=== PATIENT | female | born 1975 | race Caucasian/White ===

== ENCOUNTER 2019-03-08 12:59 | Inpatient (IN) ==
[2019-03-08 14:17] LABS: BASO# 0.04 X1000 (0.0-0.2); BASO% 0.9 % (0.0-0.8); EOS# 0.06 X1000 (0.0-0.7); EOS% 1.4 % (0.0-10.0); HEMATOCRIT 41.5 % (37.0-47.0); HEMOGLOBIN 14.1 g/dL (12.0-16.0); LYMPH# 1.63 X1000 (1.2-3.4); LYMPH% 37.6 % (20.5-51.1); MCH 31.6 PG (27-31); MONO# 0.37 X1000 (0.11-0.59); MONO% 8.5 % (1.7-9.3); NEUT# 2.24 X1000 (1.4-6.5); NEUT% 51.6 % (42.2-75.2); PLT 260 X1000 (130-400); RBC 4.46 XMIL (4.2-5.4); RDW 12.9 % (11.5-14.5); WBC 4.34 X1000 (4.8-10.8)
[2019-03-08 14:30] LABS: URINE SOURCE CATH
[2019-03-08 14:49] LABS: BILIRUBIN URINE NEGATIVE (NEGATIVE); BLOOD URINE NEGATIVE (NEGATIVE); COLOR YELLOW; GLUCOSE URINE NEGATIVE (NEGATIVE); KETONE URINE NEGATIVE (NEGATIVE); LEUKOCYTES URINE NEGATIVE (NEGATIVE); NITRITE URINE NEGATIVE (NEGATIVE); PROTEIN URINE NEGATIVE (NEGATIVE); SP GRAVITY URINE 1.012; TURBIDITY URINE CLEAR (CLEAR); UROBILINOGEN URINE NORMAL (NORMAL)
[2019-03-08 14:51] LABS: UR EPITHELIAL CELLS <10 /HPF (<10); URINE BACTERIA NEGATIVE /HPF; URINE RBC <10 /HPF (<10); URINE WBC <10 /HPF (<10)
[2019-03-08 14:54] LABS: AGAP 12; ALB/GLOB RATIO 1.4; ALBUMIN 4.3 g/dL (3.5-5.0); ALKALINE PHOSPHATASE 54 U/L (32-104); BUN 8 mg/dL (8-22); CHLORIDE 114 mmol/L (98-107); COSMO 288; CREATININE 0.8 mg/dL (0.5-0.9); ESTIMATED GFR > 60; GLUCOSE 87 mg/dL (70-104); GOT 19 U/L (10-30); GPT 24 U/L (10-36); POTASSIUM 3.7 mmol/L (3.5-5.1); SODIUM 146 mmol/L (136-145); TCO2 20 mmol/L (25-35); TOTAL BILIRUBIN 0.27 mg/dL (0.20-1.00); TOTAL PROTEIN 7.3 g/dL (6.3-8.3)
[2019-03-08 14:56] LABS: UR AMPHETAMINES QUAL NONE DETECTED (NONE DETECT); UR BARBITUATES QUAL NONE DETECTED (NONE DETECT); UR BENZODIAZEPIN QUAL NONE DETECTED (NONE DETECT); UR CANNABINOIDS QUAL NONE DETECTED (NONE DETECT); UR COCAINE QUAL NONE DETECTED (NONE DETECT); UR METHADONE QUAL NONE DETECTED (NONE DETECT); UR OPIATES QUAL NONE DETECTED (NONE DETECT); UR OXYCODONE QUAL NONE DETECTED (NONE DETECT); UR PCP QUAL NONE DETECTED (NONE DETECT)
[2019-03-08 15:12] LABS: FREE T4 1.22 ng/dL (0.93-1.70); TSH 1.16 uIUmL (0.27-4.20)
--- NOTE | 2019-03-08 15:22 | PROVIDER DOCUMENTATION ---
This chart was entered by Tim Goodwin Scribe, acting as scribe for Jorge Aquino MD. HPI-Psychological Disorder - General Chief Complaint: Suicide Attempt Stated Complaint: OVERDOSE Time Seen by Provider: 03/08/19 13:19 Source: patient, family Allergies/Adverse Reactions: Patient Allergies Allergy/AdvReac Type Severity Reaction Status Date / Time bupropion [From Wellbutrin] Allergy HIVES Verified 03/08/19 14:18 Home Medications: Home Medication List Medication Instructions Recorded Confirmed Last Taken Type Fluoxetine HCl [Prozac] 40 mg PO DAILY 03/08/19 03/08/19 Unknown History Iron,Carbonyl/Vit C/Vit B12/FA 1 ea PO DAILY 03/08/19 03/08/19 Unknown History [Iron 100 Plus Tablet] Topiramate [Topamax] 25 mg PO BID 03/08/19 03/08/19 Unknown History Vitamin B Complex [B Complex] 1 ea PO DAILY 03/08/19 03/08/19 Unknown History - History of Present Illness-Psych Nature of Presenting Problem: Pt is a 43 yof who presents to the ED via EMS with a CC of overdose attempt. EMS reports the pt tried to overdose by drinking a full bottle of benadryl and an entire bottle of clonidine. Pt's reports the pt has been depressed over a custody titus and has been taking anti-depressants. Pt's reports the pt left a note for him at home. Pt's reports the pt has been going to work with him for three weeks and today is the first day he left her home alone. Pt's states the pt has an upcoming court date over the custody titus. Onset/Duration: reports: just prior to arrival Timing: reports: still present Severity: reports: moderate Situational problems related to:: reports: legal problems (Custody titus) Psychiatric Complaints: reports: other (Limited due to pt's condition) Substance Use: reports: other (Limited due to pt's condition) Patient arrived by:: EMS called by spouse/family Similar Symptoms Previously?: No Recently seen or treated by another doctor?: No - Suicidal Ideation Suicide Risk Assessment: depressed, organized plan Suicidal Attempt Method: reports: Overdose Review of Systems - Adult - REVIEW OF SYSTEMS - ADULT ROS:: limited per condition Constitutional: reports: see HPI Eyes: reports: no symptoms reported Ears, Nose, Mouth & Throat: reports: no symptoms reported Cardiovascular: reports: no symptoms reported Respiratory: reports: no symptoms reported Gastrointestinal: reports: no symptoms reported Genitourinary: reports: no symptoms reported Musculoskeletal: reports: no symptoms reported Integumentary: reports: no symptoms reported Neurological: reports: no symptoms reported Psychiatric: reports: see HPI, anti-depressant use, depression, suicidal thoughts, other (Limited due to pt's condition) Endocrine: reports: no symptoms reported Hematologic/Lymphatic: reports: no symptoms reported Allergic/Immunologic: reports: no symptoms reported All Other Systems: Reviewed and Negative Past History - Adult - PAST MEDICAL HISTORY-ADULT Review of Records: reports: Old Records Reviewed, Nursing Assessment Review, Medications Reviewed, Social history reviewed & non-contributory. Major Childhood Illnesses: reports: denies history Cardiovascular: reports: denies history Respiratory: reports: denies history Gastrointestinal: reports: denies history Obstetrical/Gynecological: reports: denies history Genitourinary: reports: denies history Musculoskeletal: reports: denies history Neurological: reports: denies history Endocrine/Immune: reports: denies history Other Conditions: reports: denies history - IMMUNIZATION STATUS Childhood Immunizations: See Nurse Assessment Flu Vaccine: See Nurse Assessment - FAMILY HISTORY Family History: reviewed, not pertinent Physical Exam-Psych Focus - Physical Exam-Psych Appearance: lethargic, moderate distress, slow to respond Neurological: depressed affect, flat Thoughts/Hallucinations: no apparent hallucination Neck: non-tender, full range of motion, other (Limited due to pt's condition) Respiratory: chest non-tender, lungs clear, normal breath sounds, other (Limited due to pt's condition) Cardiovascular: normal peripheral pulses, other (Limited due to pt's condition) Abdominal Exam: other (Limited due to pt's condition) Extremity: other (Limited due to pt's condition) Integumentary: normal color, warm/dry Progress - PLAN OF CARE/RESULTS Progress/Plan/Lab Results: Vital Signs - 8 hr 03/08/19 13:30 Temperature 98.1 F Pulse Rate 101 H Respiratory Rate 15 Blood Pressure 120/80 O2 Sat by Pulse Oximetry 99 Laboratory Results - last 24 hr 03/08/19 03/08/19 03/08/19 14:04 14:04 14:04 WBC 4.34 L RBC 4.46 Hgb 14.1 Hct 41.5 MCV 93.0 MCH 31.6 H MCHC 34.0 RDW Std Deviation 12.9 Plt Count 260 MPV 10.0 Neut % (Auto) 51.6 Lymph % (Auto) 37.6 [place] % (Auto) 8.5 Eos % (Auto) 1.4 Baso % (Auto) 0.9 H Neut # (Auto) 2.24 Lymph # (Auto) 1.63 [place] # (Auto) 0.37 Eos # (Auto) 0.06 Baso # (Auto) 0.04 Sodium 146 H Potassium 3.7 Chloride 114 H Carbon Dioxide 20 L Anion Gap 12 BUN 8 Creatinine 0.8 Estimated GFR/1.73 m2 > 60 BUN/Creatinine Ratio 10 Glucose 87 Calculated Osmolality 288 Calcium 9.0 Total Bilirubin 0.27 AST 19 ALT 24 Alkaline Phosphatase 54 Total Protein 7.3 Albumin 4.3 Globulin 3.0 Albumin/Globulin Ratio 1.4 Vitamin B12 684 TSH 1.16 Free T4 1.22 Urine Source Urine Color Urine Turbidity Urine pH Ur Specific [place] Urine Protein Ur Glucose (Stick) Ur Ketones (Stick) Urine Blood Urine Nitrite Urine Bilirubin Urobilinogen Dipstick Urine Leukocytes Urine WBC (Auto) Urine RBC (Auto) U Epithel Cells (Auto) Urine Bacteria (Auto) Urine Test Urine Opiates Screen Ur Oxycodone Screen Ur Methadone, Qual Ur Barbiturates Screen Ur Phencyclidine Scrn Ur Amphetamines Screen U Benzodiazepines Scrn Urine Cocaine Screen U Cannabinoids Screen 03/08/19 03/08/19 03/08/19 14:23 14:23 14:23 WBC RBC Hgb Hct MCV MCH MCHC RDW Std Deviation Plt Count MPV Neut % (Auto) Lymph % (Auto) [place] % (Auto) Eos % (Auto) Baso % (Auto) Neut # (Auto) Lymph # (Auto) [place] # (Auto) Eos # (Auto) Baso # (Auto) Sodium Potassium Chloride Carbon Dioxide Anion Gap BUN Creatinine Estimated GFR/1.73 m2 BUN/Creatinine Ratio Glucose Calculated Osmolality Calcium Total Bilirubin AST ALT Alkaline Phosphatase Total Protein Albumin Globulin Albumin/Globulin Ratio Vitamin B12 TSH Free T4 Urine Source CATH Urine Color YELLOW Urine Turbidity CLEAR Urine pH 6.0 Ur Specific [place] 1.012 Urine Protein NEGATIVE Ur Glucose (Stick) NEGATIVE Ur Ketones (Stick) NEGATIVE Urine Blood NEGATIVE Urine Nitrite NEGATIVE Urine Bilirubin NEGATIVE Urobilinogen Dipstick NORMAL Urine Leukocytes NEGATIVE Urine WBC (Auto) <10 Urine RBC (Auto) <10 U Epithel Cells (Auto) <10 Urine Bacteria (Auto) NEGATIVE Urine Test NEGATIVE Urine Opiates Screen NONE DETECTED Ur Oxycodone Screen NONE DETECTED Ur Methadone, Qual NONE DETECTED Ur Barbiturates Screen NONE DETECTED Ur Phencyclidine Scrn NONE DETECTED Ur Amphetamines Screen NONE DETECTED U Benzodiazepines Scrn NONE DETECTED Urine Cocaine Screen NONE DETECTED U Cannabinoids Screen NONE DETECTED Orders Category Date Time Status CBC WITH ELECTRONIC DIFF [HEME] Stat Lab 03/08/19 14:04 Completed COMPREHENSIVE METABOLIC PANEL [CHEM] Stat Lab 03/08/19 14:04 Completed FREE T4 Stat Lab 03/08/19 14:04 Completed TEST-URINE [PREG] Stat Lab 03/08/19 14:23 Completed TSH Stat Lab 03/08/19 14:04 Completed URINALYSIS W/POSS RFLX CULT [URINALYSIS] Stat Lab 03/08/19 14:23 Completed URINE DRUG SCREEN Stat Lab 03/08/19 14:23 Completed VITAMIN B12 Stat Lab 03/08/19 14:04 Completed EKG [EKG] Stat Ther 03/08/19 15:19 Ordered Transfer/Admit Order [TRANSFER] Routine Transfer 03/08/19 15:14 Ordered Result Diagrams: 03/08/19 14:04 03/08/19 14:04 - EKG 1 Time of EKG reading by physician:: 14:24 EKG Read and Signed by:: Jorge Aquino EKG Interpretation (*Must complete 3 of following elements*): Abnormal (Anterior infarct, age undetermined) Rate: 91 Rhythm: NSR Talmo: normal QRS: normal CT Interval: normal ST Wave: normal - CONSULTS/PCP/HOSPITALIST Notification #1 *Consult/PCP/Hospitalist*: Dr. Narayan Time Discussed: 15:04 Reason/Comments: Made aware of pt and accepts admission Consult Disposition: Admit Departure - Departure Date of Disposition Decision: 03/08/19 Time of Disposition Decision: 15:21 DIAGNOSIS: Suicide attempt, Depression Disposition: ADMITTED INPATIENT 09 Certified Medical Emergency: Emergent Condition: Serious Additional Freetext Instructions: ED Follow Up Instructions: You have been treated by a care provider in the Emergency Department. These instructions are being provided to you so you can have an understanding of how to care for yourself upon discharge. Upon discharge from the Emergency Department, you are responsible for making arrangements for follow-up care by a physician of your choice. Take all prescribed medications as directed. Return to the Emergency Department immediately for any new or worsening symptoms. You may call the Physician Referral phone number at [phone] to obtain a list of Physicians who are taking new patients. Referrals and Follow-Ups: None,PCP [Primary Care Provider] - - Critical Care Note This patient required my direct & personal management of CC.: No Attestation - Physician/ JANNY Attestation Patient care was provided by Advanced Practice Provider:: No The physician spent face to face time with patient:: Yes Advanced Practice Provider documentation review:: Supervising physician onsite and consulted in the evaluation and care of this patient. The physician did have a face to face encounter with the patient. This chart was documented by the indicated scribe, (Tim Goodwin, [place]) and accurately reflects the services I performed and decisions made by me, Jorge Aquino MD, as attested by the provider's signature.
[2019-03-08] MEDS ORDERED: ZOFRAN IV PRN (16:32)
[2019-03-08] MEDS ORDERED: NS 1,000 ML IV SCH (16:32)
[2019-03-08 16:53] LABS: ACETAMINOPHEN 1.9 ug/mL (10-30); SALICYLATES < 3.00 mg/dL (3-10)
--- NOTE | 2019-03-08 17:21 | Diag Imaging Result Doc PS360 ---
EXAM: CHEST-PORTABLE HISTORY: overdose TECHNIQUE: Portable chest COMPARISON: 05/20/2014 FINDINGS: The lungs are well expanded. The heart is not enlarged. The vessels are not distended. There are no infiltrates. No effusion identified. IMPRESSION: Negative exam. Electronically signed by Raji Hauser 03/08/2019 5:18 PM
--- NOTE | 2019-03-08 17:35 | HISTORY AND PHYSICAL ---
CHIEF COMPLAINT: Overdose. HISTORY OF PRESENT ILLNESS: Ms. Renteria is a 43-year-old female who carries a past medical history of depression, migraines, and iron deficiency anemia who per 's report at the bedside took a bottle of Benadryl and an unknown amount of clonidine. He reports it was his medication. He had 30 pills in the bottle, they are p.r.n., he believes maybe 6 or 7 times that he has taken the medication and that there were 7 left in the bottle, so really unsure how many that she actually took. She also took 1 antihistamine and a muscle relaxer of her that was 2 years old and drank some Bacardi and pineapple juice. 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 When she dropped her daughter off at school, she started having a panic attack. He had been trying to call her since the morning. He got concerned and went to the residence right before lunch and found her unresponsive. She was brought in by EMS, where she still remains somewhat sedated. She will arouse to tactile stimuli, but then she goes right back off to sleep. He reports that she has been under some recent stressors with upcoming court date over a custody titus. We will admit her in the ICU, monitor her blood pressure as well as heart rhythm. As well, we will check acetaminophen and salicylate level as well as check her blood alcohol level. PAST MEDICAL HISTORY: 1. Depression. 2. Migraines. 3. Iron deficiency anemia. PAST SURGICAL HISTORY: 1. Tubal ligation. 2. Breast augmentation. FAMILY HISTORY: Unknown. They live per 's report they live far away and he does not really know much about them. SOCIAL HISTORY: She is . They have a daughter together. Apparently, she has other children that she is in a custody titus with. She does vape, occasional alcohol but no illicit drug use. No previous suicide attempts before. REVIEW OF SYSTEMS: Hard to obtain secondary to patient's condition. All information was obtained from the EMR and at bedside. PHYSICAL EXAMINATION: VITAL SIGNS: Temperature is 98.1 degrees, heart rate 101, respirations 15, blood pressure 120/80, O2 is 99% on room air. GENERAL: Ms. Renteria is a 43-year-old female who is lying on the stretcher somewhat obtunded. She will awaken to tactile stimuli, but falls right back asleep. She is in no acute distress. HEENT: Atraumatic, normocephalic. PERRL. Trachea midline. CARDIOVASCULAR: S1, S2 appreciated. No murmurs, gallops, rubs noted. No JVD appreciated. No lower extremity edema. Bilateral pedal pulses are palpable. RESPIRATORY: Lung sounds clear bilaterally. GASTROINTESTINAL: Abdomen soft, nontender, nondistended. Positive bowel sounds 4 quadrants. NEUROLOGIC: Again, patient is somewhat obtunded. However, she does wake up to tactile stimuli. Her reports she would wake up and give him some small details about the medication that she took. She has also woken up and took a bite of a turkey sandwich and drink a couple water. DIAGNOSTIC DATA: EKG pending. Chest x-ray pending. LABORATORY DATA: White count 4, hemoglobin and hematocrit 14 and 41, platelet count is 260,000. Sodium 146, potassium 3.7, BUN 8, creatinine 0.8, blood glucose is 87. Urinalysis is negative for bacteria, negative for nitrites. Toxicology screen is currently negative. Alcohol level pending. ALLERGIES: Bupropion. HOME MEDICATIONS: 1. Prozac 40 mg p.o. daily. 2. Iron 100+ tablet 1 each p.o. daily. 3. Topamax 25 mg p.o. b.i.d. 4. B complex 1 each p.o. daily. ASSESSMENT AND PLAN: 1. Overdosed on muscle relaxer, Benadryl, clonidine, antihistamine, and Bacardi rum. We will monitor the patient in the ICU. Consult manager social for possible [facility] admission. Monitor acetaminophen and salicylate levels. Continue to monitor her blood pressure closely as well as her cardiac rhythm. We will get an EKG to assess her QTc and continue to follow up in the a.m. She will remain NPO until she is more awake. We have put in for a stat chest x- ray, normal saline. 2. Depression. 3. Migraines. 4. Iron deficiency anemia. 5. Further recommendation to follow physician evaluation, laboratory and diagnostic data. Dictated by JOCELIN Hardin for Lulu Narayan MD cc: Lulu Narayan MD I performed a face to face encounter on the patient. I reviewed all labs and imaging on the patient. I agree with the H&P as dictated. SCOTTD
[2019-03-08] MEDS ORDERED: BLISTEX MEDICATED BERRY LIP BALM TOP PRN (17:38)
[2019-03-08] MEDS ORDERED: D5W IV ONE ×3 (17:45)
[2019-03-08] MEDS ORDERED: ACETADOTE IV ONE ×3 (17:45)
[2019-03-08] MEDS: D5 1/2 NS 1,000 ML IV SCH (17:57)
[2019-03-08] MEDS ORDERED: SODIUM CHLORIDE 0.9% INJ SCH (18:00)
--- NOTE | 2019-03-08 18:04 | EKG Report ---
Test Performed on : 03/08/2019 2:22:15 PM Test Reason : overdose eval QTC Blood Pressure : / mmHG Vent. Rate : 091 BPM Atrial Rate : 091 BPM P-R Int : 150 ms QRS Dur : 070 ms QT Int : 358 ms P-R-T Axes : 057 029 051 degrees QTc Int : 440 ms Normal sinus rhythm. Anterior infarct , age undetermined Abnormal ECG No previous ECGs available Unconfirmed Result
[2019-03-08 22:29] LABS: INR 1.21; PROTIME 15.5 Seconds (11.0-16.0); PTT 27.4 Seconds (22.3-41.8)
[2019-03-08 22:45] LABS: ACETAMINOPHEN < 1.2 ug/mL (10-30); AGAP 12; ALB/GLOB RATIO 1.5; ALBUMIN 4.1 g/dL (3.5-5.0); ALKALINE PHOSPHATASE 48 U/L (32-104); BUN 10 mg/dL (8-22); CALCIUM 8.4 mg/dL (8.8-10.2); CHLORIDE 107 mmol/L (98-107); COSMO 277; CREATININE 0.7 mg/dL (0.5-0.9); ESTIMATED GFR > 60; GLUCOSE 107 mg/dL (70-104); GOT 16 U/L (10-30); GPT 22 U/L (10-36); POTASSIUM 3.7 mmol/L (3.5-5.1); SODIUM 139 mmol/L (136-145); TCO2 20 mmol/L (25-35); TOTAL BILIRUBIN 0.42 mg/dL (0.20-1.00); TOTAL PROTEIN 6.9 g/dL (6.3-8.3)
[2019-03-09] MEDS: PROTONIX IV SCH (01:33)
[2019-03-09] MEDS: D5 1/2 NS 1,000 ML IV SCH (04:44)
--- NOTE | 2019-03-09 06:16 | EKG Report ---
Test Performed on : 03/09/2019 05:06:01 AM Test Reason : Overdose Blood Pressure : / mmHG Vent. Rate : 068 BPM Atrial Rate : 068 BPM P-R Int : 164 ms QRS Dur : 074 ms QT Int : 436 ms P-R-T Axes : 127 156 124 degrees QTc Int : 463 ms Suspect arm lead reversal, interpretation assumes no reversal Unusual P axis, possible ectopic atrial rhythm. Lateral infarct (cited on or before 08-MAR-2019) Inferior infarct , age undetermined Abnormal ECG When compared with ECG of 08-MAR-2019 14:22, (Unconfirmed) Ectopic atrial rhythm. has replaced Sinus rhythm. QRS axis shifted right Inferior infarct is now present Questionable change in initial forces of Anterolateral leads Confirmed by Owen RESENDEZ, Sammy Arellano ([id number]) on 03/12/2019 8:28:40 AM
[2019-03-09 06:44] LABS: BASO# 0.02 X1000 (0.0-0.2); BASO% 0.3 % (0.0-0.8); EOS# 0.06 X1000 (0.0-0.7); EOS% 0.9 % (0.0-10.0); HEMATOCRIT 38.2 % (37.0-47.0); HEMOGLOBIN 13.2 g/dL (12.0-16.0); LYMPH# 2.01 X1000 (1.2-3.4); LYMPH% 29.6 % (20.5-51.1); MCH 31.5 PG (27-31); MCHC 34.6 g/dL (33-37); MCV 91.2 FL (81-99); MONO# 0.71 X1000 (0.11-0.59); MONO% 10.5 % (1.7-9.3); MPV 10.3 FL (7.4-10.4); NEUT# 3.99 X1000 (1.4-6.5); NEUT% 58.7 % (42.2-75.2); PLT 244 X1000 (130-400); RBC 4.19 XMIL (4.2-5.4); RDW 12.7 % (11.5-14.5); WBC 6.79 X1000 (4.8-10.8)
[2019-03-09 06:47] LABS: INR 1.16
[2019-03-09] MEDS ORDERED: PROTONIX IV SCH (07:00)
[2019-03-09 07:20] LABS: ACETAMINOPHEN < 1.2 ug/mL (10-30); AGAP 7; ALB/GLOB RATIO 1.4; ALBUMIN 3.7 g/dL (3.5-5.0); ALKALINE PHOSPHATASE 45 U/L (32-104); BUN 9 mg/dL (8-22); CALCIUM 8.4 mg/dL (8.8-10.2); CHLORIDE 108 mmol/L (98-107); COSMO 269; CREATININE 0.6 mg/dL (0.5-0.9); ESTIMATED GFR > 60; GLUCOSE 101 mg/dL (70-104); GOT 13 U/L (10-30); GPT 19 U/L (10-36); MAGNESIUM 1.9 mg/dL (1.5-2.7); PHOSPHORUS 2.1 mg/dL (2.7-4.5); POTASSIUM 3.4 mmol/L (3.5-5.1); SALICYLATES < 3.00 mg/dL (3-10); SODIUM 135 mmol/L (136-145); TCO2 20 mmol/L (25-35); TOTAL BILIRUBIN 0.55 mg/dL (0.20-1.00); TOTAL PROTEIN 6.3 g/dL (6.3-8.3)
--- NOTE | 2019-03-09 07:43 | Diag Imaging Result Doc PS360 ---
CHEST-PORTABLE - 03/09/2019 INDICATION: fu COMPARISON: 03/08/2019 FINDINGS: The lungs are normally expanded and clear. Heart size and mediastinal contours are normal. No pneumothorax or pleural effusion. IMPRESSION: Negative exam. Electronically signed by Skyler Scruggs 03/09/2019 7:41 AM
[2019-03-09] MEDS ORDERED: KLOR-CON PO ONE (08:03)
[2019-03-09] MEDS: SODIUM BICARBONATE 8.4% 100 MEQ in STERILE WATER INJ. 1,000 ML IV SCH ×2 (10:11→20:35)
--- NOTE | 2019-03-09 17:05 | EKG Report ---
Test Performed on : 03/09/2019 4:37:45 PM Test Reason : QRS
--- NOTE | 2019-03-09 17:22 | PROGRESS NOTE ---
DATE: 03/09/2019 SUBJECTIVE: The patient is resting. She is awake and alert. She does admit that she was feeling depressed and tried to commit suicide by overdosing on pills. OBJECTIVE: Vital Signs: Temperature 100.3 degrees, blood pressure 111/66, heart rate 61, respirations 17, O2 saturation 96% on room air. General: This is a middle-aged female lying in bed in no acute distress. Heart: S1, S2 normal. Lungs: Clear to auscultation bilaterally. No wheezing, no rales, no rhonchi. Abdomen: Positive bowel sounds. Soft, nontender, nondistended. Extremities: No edema, no cyanosis. Neuro: The patient is alert and oriented x3. She does have a flat affect. LABS: Sodium 135, potassium 3.4, chloride 108, CO2 20, BUN 9, creatinine 0.6, glucose 101, phosphorus 2.1, hemoglobin 13, hematocrit 38, platelets 244,000. Chest x-ray shows a normal exam. ASSESSMENT AND PLAN: 1. Intentional drug overdose. Will continue the bicarb drip and monitor the patient's EKG closely. The patient has been assessed by [facility] who is recommending inpatient admission. Will continue to monitor the patient closely in the ICU. 2. Depression. Aware. Will restart the patient's Prozac. 3. History of migraines. Aware. 4. Hypokalemia. Will replace the patient's potassium. 5. Hypophosphatemia. Will replace the patient's phosphorus. 6. Deep vein thrombosis prophylaxis. Will start the patient on Lovenox. cc: Lulu Narayan MD MTDD
[2019-03-09 18:05] LABS: PHOSPHORUS 1.9 mg/dL (2.7-4.5); POTASSIUM 3.7 mmol/L (3.5-5.1)
[2019-03-09] MEDS ORDERED: SODIUM PHOSPHATE 40 MMOL in NS 250 ML IV ONE (19:08)
[2019-03-09] MEDS: LOVENOX SUBQ SCH (20:35)
[2019-03-09] MEDS: TYLENOL PO PRN (20:39)
[2019-03-10] MEDS: PROTONIX IV SCH (00:38)
[2019-03-10 07:35] LABS: HEMATOCRIT 37.2 % (37.0-47.0); HEMOGLOBIN 12.8 g/dL (12.0-16.0); MCH 31.4 PG (27-31); MCHC 34.4 g/dL (33-37); MCV 91.4 FL (81-99); MPV 9.8 FL (7.4-10.4); RBC 4.07 XMIL (4.2-5.4); RDW 12.5 % (11.5-14.5); WBC 5.62 X1000 (4.8-10.8)
--- NOTE | 2019-03-10 07:42 | EKG Report ---
Test Performed on : 03/10/2019 06:16:48 AM Test Reason : QT prolongation Blood Pressure : / mmHG Vent. Rate : 061 BPM Atrial Rate : 061 BPM P-R Int : 162 ms QRS Dur : 078 ms QT Int : 426 ms P-R-T Axes : 064 048 058 degrees QTc Int : 428 ms Normal sinus rhythm. Septal infarct , age undetermined Abnormal ECG When compared with ECG of 09-MAR-2019 16:37, (Unconfirmed) No significant change was found Confirmed by Sammy Weaver MD ([id number]) on 03/12/2019 8:29:10 AM
[2019-03-10 07:53] LABS: AGAP 8; ALB/GLOB RATIO 1.6; ALBUMIN 3.6 g/dL (3.5-5.0); ALKALINE PHOSPHATASE 49 U/L (32-104); BUN 10 mg/dL (8-22); CALCIUM 7.9 mg/dL (8.8-10.2); CHLORIDE 108 mmol/L (98-107); COSMO 280; CREATININE 0.6 mg/dL (0.5-0.9); ESTIMATED GFR > 60; GLUCOSE 102 mg/dL (70-104); GOT 11 U/L (10-30); GPT 15 U/L (10-36); MAGNESIUM 1.7 mg/dL (1.5-2.7); PHOSPHORUS 2.5 mg/dL (2.7-4.5); POTASSIUM 3.8 mmol/L (3.5-5.1); SODIUM 141 mmol/L (136-145); TCO2 25 mmol/L (25-35); TOTAL BILIRUBIN 0.38 mg/dL (0.20-1.00); TOTAL PROTEIN 5.9 g/dL (6.3-8.3)
[2019-03-10] MEDS ORDERED: FIORICET PO ONE (08:13)
[2019-03-10] MEDS: PROZAC PO SCH (08:35)
[2019-03-10] MEDS: TOPAMAX PO SCH ×2 (08:36→21:57)
[2019-03-10] MEDS: TYLENOL PO PRN (13:10)
--- NOTE | 2019-03-10 14:14 | PROGRESS NOTE ---
DATE: 03/10/2019 SUBJECTIVE: The patient is resting comfortably. No acute events noted overnight. OBJECTIVE: Vital Signs: Temperature 98.3 degrees, blood pressure 116/69, heart rate 67, respirations 18, O2 saturation 96% on room air. General: This is a middle-aged female lying in bed in no acute distress. Heart: S1, S2 normal. Regular rate and rhythm. Lungs: Clear to auscultation bilaterally. Abdomen: Positive bowel sounds. Soft, nontender, nondistended. Extremities: No edema, no cyanosis. Neuro: The patient is alert and oriented x3. LABS: Reviewed. ASSESSMENT AND PLAN: 1. Intentional drug overdose. The patient states that she is willing to go to [facility]. They did not have any beds today. We will call [facility] tomorrow to inquire about the bed situation. 2. Major depression. Continue on Prozac. 3. Migraine headaches. Continue on Topamax. 4. Deep vein thrombosis prophylaxis. Continue on Lovenox. cc: Lulu Narayan MD
[2019-03-10] MEDS: LOVENOX SUBQ SCH (22:04)
[2019-03-11] MEDS: PROZAC PO SCH (08:05)
[2019-03-11] MEDS: TOPAMAX PO SCH ×2 (08:05→20:17)
[2019-03-11] MEDS ORDERED: NEUTRA-PHOS PO ONE (10:05)
--- NOTE | 2019-03-11 17:49 | PROGRESS NOTE ---
DATE: 03/11/2019 SUBJECTIVE: The patient is resting comfortably in bed. She states that she is no longer having a migraine headache. OBJECTIVE: Vital Signs: Temperature 98.9 degrees, blood pressure 107/65, heart rate 68, respirations 20, O2 saturation is 100% on room air. General: This is a middle- aged female sitting in bed in no acute distress. Heart: S1, S2 normal. Regular rate and rhythm. Lungs: Equal air entry bilaterally. Abdomen: Positive bowel sounds. Soft, nontender, nondistended. Extremities: No edema. No cyanosis. Neurologic: The patient is alert and oriented x3. LABORATORY DATA: Phosphorus 2.5, BUN 10, creatinine 0.6, glucose 102, potassium 3.8, sodium 141. ASSESSMENT AND PLAN: 1. Intentional drug overdose. [facility] states that [facility] have no beds available to accept the patient. The patient has an appointment with Dr. Tony Moses at [facility] on 03/13/2019 at 10 a.m. We will call and speak to the psychiatrist to inform him about the patient's condition. 2. Migraine headaches. Continue on Topamax. 3. Major depression. Continue on Prozac. 4. Hypophosphatemia. Will give the patient neutraphos. 5. Deep vein thrombosis prophylaxis. Continue on Lovenox. cc: Lulu Narayan MD MTDD
[2019-03-11] MEDS: LOVENOX SUBQ SCH (20:17)
[2019-03-12] MEDS: PROZAC PO SCH (08:40)
[2019-03-12] MEDS: TOPAMAX PO SCH ×3 (08:40→21:46)
--- NOTE | 2019-03-12 13:32 | DISCHARGE SUMMARY ---
ADMISSION DATE: 03/08/2019 DISCHARGE DATE: 03/12/2019 FINAL DISCHARGE DIAGNOSIS: 1. Intentional drug overdose. 2. Major depression. 3. Migraine headaches. 4. Hypophosphatemia. HOSPITAL COURSE: Ms. Waters is a 43-year-old female with a history of major depression and migraine headaches who was brought to the ER after intentionally overdosing on Benadryl and clonidine. The patient was found unresponsive by her and he called EMS. Upon arrival to the ER, the patient was noted to be lethargic. She was started on IV fluids and admitted to the ICU. By the following day the patient was awake and alert, and stated that she had been feeling depressed due to a child custody titus that she is going through at this time. The patient stated that she is interested in getting psychiatric treatment for her depression. [facility] was consulted but ultimately stated that they could not accept the patient. The patient was restarted on Prozac, which is a medication that she was on prior to admission. The patient now has an appointment with Dr. Tony Moses scheduled for 03/13/2019 at 10 a.m. We will plan to discharge the patient on the morning of 03/13/2019 so that she can make the appointment with Dr. Moses as scheduled on 03/13/2019. DISCHARGE MEDICATIONS: 1. Topamax 25 mg oral twice a day. 2. Prozac 40 mg p.o. daily. 3. Vitamin B complex 1 tab oral daily. 4. Multivitamin 1 tab oral daily. DISCHARGE DIET: Regular diet. FOLLOW UP INSTRUCTIONS: The patient is scheduled to follow up with Dr. Tony Moses on 03/13/2019 at 10 a.m. The patient states that she will be going to that appointment. cc: Dr. Tony Narayan MD
[2019-03-12] MEDS: LOVENOX SUBQ SCH (21:46)
[2019-03-13 04:40] VITALS: BP 123/72
[2019-03-13] MEDS: PROZAC PO SCH (08:09)
[2019-03-13] MEDS: TOPAMAX PO SCH (08:09)
== END 2019-03-13 08:24 | disposition home or self-care (01) | DRG 918 ==
LOC: ICU 12:59 → ED 12:59 → OBSVTOIN 15:31 → 4N 03-10 09:33
PROVIDERS: ATTEND Internal Medicine